=== PATIENT | male | born 1945 | race Two or more races ===

== ENCOUNTER 2022-04-14 05:35 | Day surgery (SDC) | payer OTHER ==
[~2022-04-14] VITALS: Ht 162.6 cm; Wt 66.2 kg
[2022-04-14] MEDS ORDERED: ULTRACET PO (13:47)
== END 2022-04-14 17:50 | disposition home or self-care (01) ==
LOC: CIR.AMB 05:35
PROVIDERS: ATTEND Surgery
DX: C21.8 Malignant neoplasm of overlapping sites of rectum, anus and anal canal (principal); K62.89 Other specified diseases of anus and rectum; K62.5 Hemorrhage of anus and rectum; F17.210 Nicotine dependence, cigarettes, uncomplicated; Z20.822 Contact with and (suspected) exposure to COVID-19

== ENCOUNTER 2022-05-19 09:15 | Inpatient (IN) | payer OTHER ==
[~2022-05-19] VITALS: Ht 162.6 cm; Wt 66.2 kg
[~2022-05-19 09:15] MED LIST: ULTRACET PO
[2022-05-23] MEDS ORDERED: HYDROXYCHLOROQ200 MG (14:57)
[2022-05-23] MEDS ORDERED: MONTELUKAST SOD10 MG (14:57)
[2022-05-23] MEDS ORDERED: IBUPROFEN800 MG (14:57)
[2022-05-23] MEDS ORDERED: FOLIC ACID1 MG (14:57)
[2022-05-23] MEDS ORDERED: CETIRIZINE HCL10 MG (14:57)
[2022-05-23] MEDS ORDERED: ALENDRONATE SOD70 MG (14:57)
[2022-05-23] MEDS ORDERED: TAMSULOSIN HCL0.4 MG (14:57)
[2022-05-23] MEDS ORDERED: DICLOFENAC POTA50 MG (14:57)
[2022-05-23] MEDS ORDERED: ST. JOSEPH ASPI81 M2 (14:58)
[2022-05-23] MEDS ORDERED: FENTANYL1 EAC3 (14:58)
[2022-05-23] MEDS ORDERED: METHYLPREDNISOLO4 MG (14:58)
[2022-05-28] MEDS ORDERED: PERCOCET 5-3251 EACH PO (12:55)
[2022-05-28] MEDS ORDERED: NEURONTIN300 MG PO (12:55)
[2022-05-28] MEDS ORDERED: HIBICLENS118 ML TOP (12:56)
[2022-05-28] MEDS ORDERED: INTESTINEX680 M1 PO (12:56)
[2022-05-28] MEDS ORDERED: AMOX1TAB5 PO (12:56)
== END 2022-05-28 14:28 | disposition home or self-care (01) | DRG 330 ==
LOC: SURH 05-23 06:43 → O/R 05-23 06:43 → SURH 05-23 09:15
PROVIDERS: ADMIT Surgery; ATTEND Surgery
PROC: 0DTP4ZZ Resection of Rectum, Percutaneous Endoscopic Approach (ICD-10-PCS; 2022-05-23)
PROC: 0DBQ4ZZ Excision of Anus, Percutaneous Endoscopic Approach (ICD-10-PCS; 2022-05-23)
PROC: 07BC4ZZ Excision of Pelvis Lymphatic, Percutaneous Endoscopic Approach (ICD-10-PCS; 2022-05-23)
PROC: 0D1N4Z4 Bypass Sigmoid Colon to Cutaneous, Percutaneous Endoscopic Approach (ICD-10-PCS; 2022-05-23)
PROC: 0DTN4ZZ Resection of Sigmoid Colon, Percutaneous Endoscopic Approach (ICD-10-PCS; principal; 2022-05-23 15:00)
DX: C21.1 Malignant neoplasm of anal canal (principal); K62.5 Hemorrhage of anus and rectum; R59.0 Localized enlarged lymph nodes; K62.89 Other specified diseases of anus and rectum; R33.8 Other retention of urine

== ENCOUNTER 2022-06-04 21:26 | Inpatient (IN) | payer OTHER ==
[~2022-06-04] VITALS: Ht 162.6 cm; Wt 68.0 kg
[~2022-06-04 21:26] MED LIST changes: +ALENDRONATE SOD70 MG; +AMOX1TAB5 PO; +CETIRIZINE HCL10 MG; +DICLOFENAC POTA50 MG; +FENTANYL1 EAC3; +FOLIC ACID1 MG; +HIBICLENS118 ML TOP; +HYDROXYCHLOROQ200 MG; +IBUPROFEN800 MG; +INTESTINEX680 M1 PO; +METHYLPREDNISOLO4 MG; +MONTELUKAST SOD10 MG; +NEURONTIN300 MG PO; +PERCOCET 5-3251 EACH PO; +ST. JOSEPH ASPI81 M2; +TAMSULOSIN HCL0.4 MG
[2022-06-06] MEDS ORDERED: FENTANYL1 EAC3 (08:42)
[2022-06-06] MEDS ORDERED: RAYOS5 MG (08:42)
[2022-06-06] MEDS ORDERED: FOLIC ACID1 MG (08:42)
[2022-06-06] MEDS ORDERED: DICLOFENAC POTA50 MG (08:42)
[2022-06-06] MEDS ORDERED: MONTELUKAST SOD10 MG (08:42)
[2022-06-06] MEDS ORDERED: ST. JOSEPH ASPI81 M2 (08:42)
[2022-06-06] MEDS ORDERED: ALENDRONATE SOD70 MG (08:42)
[2022-06-06] MEDS ORDERED: CETIRIZINE HCL10 MG (08:42)
[2022-06-06] MEDS ORDERED: METHYLPREDNISOLO4 MG (08:42)
[2022-06-06] MEDS ORDERED: IBUPROFEN800 MG (08:42)
[2022-06-14] MEDS ORDERED: NEURONTIN300 MG PO (07:35)
[2022-06-14] MEDS ORDERED: ACETAMINOPHEN500 M2 PO (07:35)
[2022-06-23] MEDS ORDERED: TAMS0.4C PO (12:51)
== END 2022-06-23 14:10 | disposition home or self-care (01) | DRG 920 ==
LOC: ER 21:26 → SURH 06-05 16:21 → SURG 06-07 13:17 → SURH 06-09 09:57
PROVIDERS: ADMIT Surgery; ATTEND Surgery
PROC: BW21ZZZ Computerized Tomography (CT Scan) of Abdomen and Pelvis (ICD-10-PCS; principal; 2022-06-04)
PROC: BW21YZZ Computerized Tomography (CT Scan) of Abdomen and Pelvis using Other Contrast (ICD-10-PCS; 2022-06-19)
DX: T81.31XA Disruption of external operation (surgical) wound, not elsewhere classified, initial encounter (principal); C21.1 Malignant neoplasm of anal canal; T81.49XA Infection following a procedure, other surgical site, initial encounter; K62.5 Hemorrhage of anus and rectum; B96.29 Other Escherichia coli [E. coli] as the cause of diseases classified elsewhere; Z93.3 Colostomy status

== ENCOUNTER 2022-07-21 17:27 | Inpatient (IN) | payer OTHER ==
[~2022-07-21] VITALS: Ht 167.6 cm; Wt 63.5 kg
[~2022-07-21 17:27] MED LIST changes: +ACETAMINOPHEN500 M2 PO; +RAYOS5 MG; +TAMS0.4C PO
--- NOTE | 2022-07-21 17:47 | NUR ---
PTE ALERTA Y ORIENTADO X 3 ESFERAS EN COMPANIA DE FAMILIAR RECIBIDO EN AMBULANCIA,REFIEREN PTE OPERADO EN ENERO DE COLON POR DR Irma JAIN,DOLOR EN AREA ANAL DESDE HACE 2 SEMANAS,CON OLOR FETIDO Y SUPURANDO.SE OBSERVA OSTOMIA EN LADO RT.
--- NOTE | 2022-07-21 18:59 | NUR ---
PACIENTE EVALUADO POR EL QUIEN ORDENA TRATAMIENTO MEDICO. STEPHAN CASTRO REALIZA MUESTRAS BAJO MEDIDAS ASEPTICAS Y ADMINISTRA MEDICAMENTOS CRYS ORDEN. SE ORIENTA SOBRE CT PO.
--- NOTE | 2022-07-21 23:32 | NUR ---
SE RECIBE PTE MASCULINO ALERTA Y ORIENTADO X3 DEL TURNO ANTERIOR, CON BUEN PATRON RESPIRATORIO Y ISN QUEJA DE DOLOR AL MOMENTO. VENOPUNCION PATENTE, VILLA DE EDEMA Y ERITEMA RECIBIENDO TERAPIA DE IVFS 0.9NSS BAJANDO A 120ML/HR. PTE EN FABIOLA NIVEL MAS BAJO CON BARANDAS ELEVADAS Y FRENOS COLOCADOS POR SEGURIDAD. PENDIENTE CONSULTA CON YA NOTIFICADA.
--- NOTE | 2022-07-22 07:47 | NUR ---
SE RECIBE PTE DEL TURNO ANTERIOR, ALERTA Y ORIENTADO EN BLESSING MARCIE ESFERAS, UBICADO EN FABIOLA, NIVEL MAS BAJO, PIERCE DE IDENTIFICACION Y BARANDAS ELEVADAS POR PRECAUCION. SE OBSERVA CON BUEN PATRON RESPIRATORIO. PIEL TIBIA AL TACTO. IV PATENTE Y VILLA DE EDEMA O ERITEMA RECIBIENDO 0.9% NSS @120ML/HR. PENDIENTE CONSULTA CON DR Irma JAIN. SE MANTIENE BAJO OBSERVACION.
[2022-07-25] MEDS ORDERED: FINASTERIDE5 MG (10:34)
[2022-07-28] MEDS ORDERED: DICLOFENAC POTA50 MG PO (12:00)
[2022-07-28] MEDS ORDERED: NEURONTIN300 MG PO (12:00)
[2022-07-28] MEDS ORDERED: ACETAMINOPHEN500 M2 PO (12:00)
[2022-07-28] MEDS ORDERED: AMOX1TAB5 PO (12:00)
== END 2022-07-28 13:38 | disposition home or self-care (01) | DRG 949 ==
LOC: ER 17:27 → MEDJ 07-22 15:55 → SURG 07-22 15:55
PROVIDERS: ADMIT Surgery; ATTEND Surgery
PROC: BW21YZZ Computerized Tomography (CT Scan) of Abdomen and Pelvis using Other Contrast (ICD-10-PCS; principal; 2022-07-21)
DX: T81.49XD Infection following a procedure, other surgical site, subsequent encounter (principal); C21.1 Malignant neoplasm of anal canal; B96.5 Pseudomonas (aeruginosa) (mallei) (pseudomallei) as the cause of diseases classified elsewhere; K62.89 Other specified diseases of anus and rectum; Z93.3 Colostomy status

== ENCOUNTER 2023-02-12 18:00 | Inpatient (IN) | payer OTHER ==
[~2023-02-12] VITALS: Ht 165.1 cm; Wt 63.5 kg
[~2023-02-12 18:00] MED LIST changes: +DICLOFENAC POTA50 MG PO; +FINASTERIDE5 MG
[2023-02-12 19:57] LABS: HEMATOCRIT 31.9 % (39.0-48.0); HEMOGLOBIN 10.8 g/dL (13-16.00); MEAN CELL VOLUME 103.6 fL (80.0-100.00); MEAN CORPUSCULAR HEMOGLOBIN 35.2 pg (27.00-32.0); PLATELET COUNT 250 K/uL (150-450); RED BLOOD COUNT 3.08 M/uL (4.00-6.00); RED CELL DISTRIBUTION WIDTH 13.1 % (11.5-14.5)
[2023-02-12 20:02] LABS: ERYTHROCYTE SEDIMENTATION RATE 64 mm/hr
[2023-02-12 20:34] LABS: ALBUMIN 3.1 gm/dL (3.4-5.0); BILIRUBIN TOTAL 0.31 mg/dL (0.3-1.2); C-REACTIVE PROTEIN 2.34 MG/DL (0.00-0.29); CALCIUM 9.6 mg/dL (8.5-10.1); CREATININE SERUM 0.84 mg/dL (0.70-1.30); GFR 88.84; GLOBULINA 4.3 G/DL (2.4-3.5); POTASSIUM 4.31 mEq/L (3.5-5.1); TOTAL PROTEIN 7.4 gm/dL (6.4-8.2)
[2023-02-12 23:55] LABS: URINE APPEARANCE Clear; URINE BILIRRUBIN Negative (NEGATIVE); URINE BLOOD Negative; URINE COLOR Yellow; URINE GLUCOSE Negative (NEGATIVE); URINE LEUKOCYTE Negative; URINE NITRATE Negative; URINE PROTEIN Negative (NEGATIVE); URINE UROBILINOGEN 0.2 E.U./dl
[2023-02-12 23:59] LABS: URINE RBC 3.8 uL (0.0-20.8)
[2023-02-13 00:28] LABS: INR 1.04; PARTIAL THROMBOPLASTIN TIME 31.6 SECONDS (22.0-34.0); PROTHROMBIN TIME 10.9 SECONDS (9.0-11.5)
[2023-02-13 00:44] LABS: URINE BACTERIA 2.5 uL (0.0-1933); URINE EPITHELIAL CELLS 0.1 uL (0.0-38.8); URINE WBC 0.4 uL (0.0-23.2)
[2023-02-14 08:22] LABS: HEMATOCRIT 36.7 % (39.0-48.0); HEMOGLOBIN 12.7 g/dL (13-16.00); MEAN CORPUSCULAR HEMOGLOBIN 35.7 pg (27.00-32.0); MEAN CORPUSCULAR HGB CONC 34.7 g/dl (32.0-36.0); PLATELET COUNT 261 K/uL (150-450); RED BLOOD COUNT 3.56 M/uL (4.00-6.00); RED CELL DISTRIBUTION WIDTH 13.7 % (11.5-14.5)
[2023-02-14 09:14] LABS: ALBUMIN 3.3 gm/dL (3.4-5.0); BILIRUBIN TOTAL 0.59 mg/dL (0.3-1.2); CALCIUM 9.4 mg/dL (8.5-10.1); CREATININE SERUM 0.65 mg/dL (0.70-1.30); GFR 119.43; GLOBULINA 4.1 G/DL (2.4-3.5); MAGNESIUM 2.2 mg/dL (1.8-2.4); PHOSPHOROUS 3.6 mg/dL (2.5-4.9); POTASSIUM 4.08 mEq/L (3.5-5.1); TOTAL PROTEIN 7.4 gm/dL (6.4-8.2)
[2023-02-14 09:15] LABS: C-REACTIVE PROTEIN 2.94 MG/DL (0.00-0.29)
[2023-02-17 08:26] LABS: ALBUMIN 3.2 gm/dL (3.4-5.0); CALCIUM 9.2 mg/dL (8.5-10.1); CREATININE SERUM 0.6 mg/dL (0.70-1.30); GFR 130.99; PHOSPHOROUS 3.8 mg/dL (2.5-4.9); POTASSIUM 4.03 mEq/L (3.5-5.1)
[2023-02-17 09:10] LABS: HEMATOCRIT 34.6 % (39.0-48.0); HEMOGLOBIN 11.9 g/dL (13-16.00); MEAN CELL VOLUME 102.7 fL (80.0-100.00); MEAN CORPUSCULAR HEMOGLOBIN 35.3 pg (27.00-32.0); MEAN CORPUSCULAR HGB CONC 34.4 g/dl (32.0-36.0); PLATELET COUNT 236 K/uL (150-450); RED BLOOD COUNT 3.37 M/uL (4.00-6.00); RED CELL DISTRIBUTION WIDTH 12.7 % (11.5-14.5)
[2023-02-21 07:03] LABS: HEMOGLOBIN 11.3 g/dL (13-16.00); MEAN CELL VOLUME 101.7 fL (80.0-100.00); MEAN CORPUSCULAR HEMOGLOBIN 34.9 pg (27.00-32.0); MEAN CORPUSCULAR HGB CONC 34.3 g/dl (32.0-36.0); PLATELET COUNT 263 K/uL (150-450); RED BLOOD COUNT 3.25 M/uL (4.00-6.00); RED CELL DISTRIBUTION WIDTH 12.8 % (11.5-14.5)
[2023-02-21 07:54] LABS: BILIRUBIN TOTAL 0.45 mg/dL (0.3-1.2); C-REACTIVE PROTEIN 6.05 MG/DL (0.00-0.29); CALCIUM 9.5 mg/dL (8.5-10.1); CREATININE SERUM 0.62 mg/dL (0.70-1.30); GFR 126.13; GLOBULINA 3.9 G/DL (2.4-3.5); MAGNESIUM 2.2 mg/dL (1.8-2.4); PHOSPHOROUS 2.8 mg/dL (2.5-4.9); POTASSIUM 4.07 mEq/L (3.5-5.1); TOTAL PROTEIN 6.9 gm/dL (6.4-8.2)
[2023-02-23 07:21] LABS: CALCIUM 9.7 mg/dL (8.5-10.1); CREATININE SERUM 0.59 mg/dL (0.70-1.30); GFR 133.56; POTASSIUM 4.24 mEq/L (3.5-5.1)
[2023-02-23 07:36] LABS: HEMATOCRIT 35.9 % (39.0-48.0); HEMOGLOBIN 11.9 g/dL (13-16.00); MEAN CELL VOLUME 103.9 fL (80.0-100.00); MEAN CORPUSCULAR HEMOGLOBIN 34.5 pg (27.00-32.0); MEAN CORPUSCULAR HGB CONC 33.2 g/dl (32.0-36.0); PLATELET COUNT 306 K/uL (150-450); RED BLOOD COUNT 3.46 M/uL (4.00-6.00); RED CELL DISTRIBUTION WIDTH 12.8 % (11.5-14.5)
[2023-02-23] MEDS ORDERED: DICLOFENAC POTA50 MG PO (13:59)
[2023-02-23] MEDS ORDERED: PERCOCET 5-3251 EACH PO (13:59)
[2023-02-23] MEDS ORDERED: NEURONTIN300 MG PO (13:59)
[2023-02-24] MEDS ORDERED: PERCOCET 5-3251 EACH PO (11:41)
[2023-02-24] MEDS ORDERED: TRAM1TAB98 PO (11:42)
[2023-02-27] MEDS ORDERED: PERCOCET 5-3251 EACH PO (09:17)
[2023-02-27] MEDS ORDERED: NEURONTIN300 MG PO (09:17)
[2023-02-27] MEDS ORDERED: ZIPSOR25 MG PO (09:17)
== END 2023-02-27 13:44 | disposition home or self-care (01) | DRG 580 ==
LOC: ER 18:00 → SURG 22:39 → SURH 22:39 → MEDJ 22:39 → SURH 23:48 → MEDJ 02-13 00:45 → SURH 02-16 18:03
PROVIDERS: General Practice; Internal Medicine; Internal Medicine Infectious Disease; ADMIT Surgery; ATTEND Surgery
PROC: 0JB73ZZ Excision of Back Subcutaneous Tissue and Fascia, Percutaneous Approach (ICD-10-PCS; principal; 2023-02-16 13:30)
PROC: BW3GZZZ Magnetic Resonance Imaging (MRI) of Pelvic Region (ICD-10-PCS; 2023-02-23)
DX: L02.215 Cutaneous abscess of perineum (principal); C21.1 Malignant neoplasm of anal canal; N39.0 Urinary tract infection, site not specified; B96.20 Unspecified Escherichia coli [E. coli] as the cause of diseases classified elsewhere; K60.3 Anal fistula; C76.3 Malignant neoplasm of pelvis
CPT/HCPCS: 72198

== ENCOUNTER 2023-05-03 15:26 | Inpatient (IN) | payer OTHER ==
[~2023-05-03] VITALS: Ht 154.9 cm; Wt 61.2 kg
[~2023-05-03 15:26] MED LIST changes: +TRAM1TAB98 PO; +ZIPSOR25 MG PO
[2023-05-03] MEDS ORDERED: TAMS0.4C (15:34)
[2023-05-03 18:17] LABS: HEMATOCRIT 28.2 % (39.0-48.0); MEAN CELL VOLUME 102.8 fL (80.0-100.00); MEAN CORPUSCULAR HEMOGLOBIN 34.5 pg (27.00-32.0); MEAN CORPUSCULAR HGB CONC 33.6 g/dl (32.0-36.0); PLATELET COUNT 224 K/uL (150-450); RED BLOOD COUNT 2.75 M/uL (4.00-6.00); RED CELL DISTRIBUTION WIDTH 15.2 % (11.5-14.5)
[2023-05-03 18:20] LABS: ERYTHROCYTE SEDIMENTATION RATE 90 mm/hr; HEMOGLOBIN 9.5 g/dL (13-16.00)
[2023-05-03 18:23] LABS: PH,URINE 6.5 (5.0-8.0); URINE APPEARANCE Clear; URINE BILIRRUBIN Negative (NEGATIVE); URINE BLOOD Negative; URINE COLOR Yellow; URINE GLUCOSE Negative (NEGATIVE); URINE LEUKOCYTE Negative; URINE NITRATE Negative; URINE PROTEIN Negative (NEGATIVE); URINE UROBILINOGEN 0.2 E.U./dl
[2023-05-03 18:24] LABS: URINE EPITHELIAL CELLS 5.8 uL (0.0-38.8)
[2023-05-03 18:25] LABS: URINE BACTERIA 2.5 uL (0.0-1933); URINE RBC 1.7 uL (0.0-20.8)
[2023-05-03 18:37] LABS: INR 1.07; PARTIAL THROMBOPLASTIN TIME 33.2 SECONDS (22.0-34.0); PROTHROMBIN TIME 11.2 SECONDS (9.0-11.5)
[2023-05-03 18:42] LABS: ALBUMIN 2.8 gm/dL (3.4-5.0); BILIRUBIN TOTAL 0.36 mg/dL (0.3-1.2); CALCIUM 9.3 mg/dL (8.5-10.1); CREATININE SERUM 0.84 mg/dL (0.70-1.30); GFR 88.84; GLOBULINA 4.1 G/DL (2.4-3.5); POTASSIUM 4.09 mEq/L (3.5-5.1); TOTAL PROTEIN 6.9 gm/dL (6.4-8.2)
[2023-05-07 06:52] LABS: HEMATOCRIT 31.7 % (39.0-48.0); HEMOGLOBIN 10.8 g/dL (13-16.00); MEAN CELL VOLUME 102.9 fL (80.0-100.00); MEAN CORPUSCULAR HEMOGLOBIN 35.2 pg (27.00-32.0); MEAN CORPUSCULAR HGB CONC 34.2 g/dl (32.0-36.0); PLATELET COUNT 267 K/uL (150-450); RED BLOOD COUNT 3.08 M/uL (4.00-6.00); RED CELL DISTRIBUTION WIDTH 15.3 % (11.5-14.5)
[2023-05-07 07:23] LABS: CALCIUM 10.1 mg/dL (8.5-10.1); CREATININE SERUM 0.65 mg/dL (0.70-1.30); GFR 119.43; POTASSIUM 4.2 mEq/L (3.5-5.1)
[2023-05-08] MEDS ORDERED: NEURONTIN300 MG PO (15:54)
[2023-05-08] MEDS ORDERED: DICLOFENAC POTA50 MG PO (15:54)
[2023-05-08] MEDS ORDERED: PERCOCET 5-3251 EACH PO (15:54)
== END 2023-05-08 16:38 | disposition home or self-care (01) | DRG 603 ==
LOC: ER 15:26 → SURH 22:25
PROVIDERS: Internal Medicine; ADMIT Surgery; ATTEND Surgery
PROC: BW2GYZZ Computerized Tomography (CT Scan) of Pelvic Region using Other Contrast (ICD-10-PCS; principal; 2023-05-03)
PROC: BW3GZZZ Magnetic Resonance Imaging (MRI) of Pelvic Region (ICD-10-PCS; 2023-05-05)
PROC: BW3GYZZ Magnetic Resonance Imaging (MRI) of Pelvic Region using Other Contrast (ICD-10-PCS; 2023-05-05)
DX: L02.215 Cutaneous abscess of perineum (principal); L98.498 Non-pressure chronic ulcer of skin of other sites with other specified severity; C48.2 Malignant neoplasm of peritoneum, unspecified; C21.1 Malignant neoplasm of anal canal; C61 Malignant neoplasm of prostate; K60.3 Anal fistula; B96.20 Unspecified Escherichia coli [E. coli] as the cause of diseases classified elsewhere; Z93.3 Colostomy status; Z92.21 Personal history of antineoplastic chemotherapy
CPT/HCPCS: 72198

== ENCOUNTER 2023-09-19 08:37 | Inpatient (IN) | payer OTHER ==
[~2023-09-19] VITALS: Ht 170.2 cm; Wt 68.0 kg
[~2023-09-19 08:37] MED LIST changes: +TAMS0.4C
--- NOTE | 2023-09-19 08:51 | NUR ---
PACIENTE MASCULINO ALERTA Y ORIENTADO EN PERSONA, LLEGA A DELORIS DE EMERGENCIA EN AMBULACIA. PERSONAL DE EMERGENCIA MEDICAS VERBALIZA QUE EL PACIENTE SE ENCUENTRA CON DIFICULTAD RESPIRATORIA, CONECTADO A NON-REBREATHER MASK. SE LE REALIZA EKG Y SE LE PRESENTA A EL CUAL REFIERE COLOCARLO EN AREA DE CRITICO.
[2023-09-19] MEDS ORDERED: 0.9 % SODIUM CHLORIDE 1,000 ML IV STA (09:15)
[2023-09-19] MEDS ORDERED: METHYLPREDNISOLONE SOD SUCC 125 MG VIAL IV STA (09:18)
[2023-09-19] MEDS ORDERED: LEVALBUTEROL HCL 1.25 MG/3 ML SOLUTION IH SCH ×2 (09:18→13:03)
[2023-09-19 09:38] LABS: HEMATOCRIT 26.4 % (39.0-48.0); MEAN CELL VOLUME 96.5 fL (80.0-100.00); MEAN CORPUSCULAR HEMOGLOBIN 31.7 pg (27.00-32.0); PLATELET COUNT 242 K/uL (150-450); RED BLOOD COUNT 2.74 M/uL (4.00-6.00); RED CELL DISTRIBUTION WIDTH 16.6 % (11.5-14.5)
[2023-09-19 09:39] LABS: HEMOGLOBIN 8.7 g/dL (13-16.00)
[2023-09-19 09:54] LABS: ALBUMIN 2.2 gm/dL (3.4-5.0); BILIRUBIN TOTAL 0.62 mg/dL (0.3-1.2); BILIRUBIN,CONJUGATED 0.26 mg/dL (0.0-0.2); BILIRUBIN,UNCONJUGATED 0.36 mg/dL (0.0-0.6); CALCIUM 11.9 mg/dL (8.5-10.1); CREATININE SERUM 0.78 mg/dL (0.70-1.30); GFR 96.51; POTASSIUM 3.71 mEq/L (3.5-5.1); TOTAL PROTEIN 7.6 gm/dL (6.4-8.2)
[2023-09-19] MEDS ORDERED: PIPERACILLIN/TAZOBACTAM SODIUM 3.375 GM in DEXTROSE 5 % IN WATER 100 ML IV SCH (12:00)
[2023-09-19] MEDS ORDERED: FAMOTIDINE/PF 20 MG in 0.9 % SODIUM CHLORIDE 100 ML IV SCH (12:55)
[2023-09-19] MEDS ORDERED: PIPERACILLIN/TAZOBACTAM SODIUM 3.375 GM in 0.9 % SODIUM CHLORIDE 100 ML IV SCH (12:55)
[2023-09-19] MEDS ORDERED: 0.9 % SODIUM CHLORIDE 1,000 ML IV SCH (13:00)
[2023-09-19] MEDS ORDERED: GABAPENTIN 300 MG CAPSULE PO SCH (13:01)
[2023-09-19] MEDS ORDERED: ACETAMINOPHEN 325 MG TABLET PO PRN (13:15)
[2023-09-19 13:19] LABS: ABG PH 7.466 (7.35-7.45); ABG PO2 31.8 mmHg (80-100); ABG pCO2 36.4 mmHg (35-45); BASE EXCESS 2.2 mmol/l; BICARBONATE 25.7 mmol/l (23-25); SaO2 66.2 %
[2023-09-19 13:20] LABS: Tco2 26.8 mmol/l; allen test SATISFACTORY; o2 21 %; puncture site RADIAL RIGHT
[2023-09-19 13:46] LABS: INR 1.16; PARTIAL THROMBOPLASTIN TIME 29.9 SECONDS (22.0-34.0)
[2023-09-19 13:48] LABS: CALCIUM 11.6 mg/dL (8.5-10.1); CKMB 1.9 NG/ML (0.5-3.6); MAGNESIUM 1.5 mg/dL (1.8-2.4); PHOSPHOROUS 2.7 mg/dL (2.5-4.9)
[2023-09-19 13:58] LABS: PH,URINE 6.5 (5.0-8.0); URINE APPEARANCE Clear; URINE BILIRRUBIN Negative (NEGATIVE); URINE BLOOD Moderate; URINE COLOR Yellow; URINE GLUCOSE Negative (NEGATIVE); URINE LEUKOCYTE Trace; URINE NITRATE Negative; URINE PROTEIN Negative (NEGATIVE); URINE UROBILINOGEN 0.2 E.U./dl
[2023-09-19 13:59] LABS: URINE BACTERIA 59.1 uL (0.0-1933); URINE EPITHELIAL CELLS 12.2 uL (0.0-38.8); URINE RBC 156.2 uL (0.0-20.8); URINE WBC 64.9 uL (0.0-23.2)
[2023-09-19] MEDS ORDERED: FAMOTIDINE20 MG (16:13)
[2023-09-19] MEDS ORDERED: FENTANYL1 EAC6 (16:13)
[2023-09-19] MEDS ORDERED: GABAPENTIN300 M2 (16:13)
[2023-09-19] MEDS ORDERED: ONDANSETRON HCL4 MG (16:13)
[2023-09-19] MEDS ORDERED: PANTOPRAZOLE SO20 MG (16:13)
[2023-09-20] MEDS ORDERED: PIPERACILLIN/TAZOBACTAM SODIUM 3.375 GM VIAL IV ONE (10:38)
[2023-09-20] MEDS ORDERED: SODIUM CL 0.9% 100 ML IV.SOLN IV ONE (14:19)
[2023-09-21] MEDS ORDERED: DIATRIZOATE MEGLUMINE, SODIUM 30 ML BOTTLE PO NR (08:30)
[2023-09-21] MEDS ORDERED: MAGNESIUM SULFATE IN WATER 50 ML IV NR (11:15)
[2023-09-21 15:36] LABS: ob NEGATIVE (NEGATIVE)
[2023-09-21] MEDS ORDERED: LEVALBUTEROL HCL 1.25 MG/3 ML SOLUTION IH SCH (18:00)
[2023-09-22 07:17] LABS: HEMATOCRIT 24.6 % (39.0-48.0); MEAN CELL VOLUME 96.7 fL (80.0-100.00); MEAN CORPUSCULAR HGB CONC 34.1 g/dl (32.0-36.0); PLATELET COUNT 219 K/uL (150-450); RED BLOOD COUNT 2.55 M/uL (4.00-6.00); RED CELL DISTRIBUTION WIDTH 16.2 % (11.5-14.5)
[2023-09-22 07:35] LABS: MEAN CORPUSCULAR HEMOGLOBIN 32.9 pg (27.00-32.0)
[2023-09-22 07:36] LABS: HEMOGLOBIN 8.4 g/dL (13-16.00)
[2023-09-22 08:00] LABS: CALCIUM 11.3 mg/dL (8.5-10.1); CREATININE SERUM 0.63 mg/dL (0.70-1.30); GFR 123.49; POTASSIUM 3.18 mEq/L (3.5-5.1)
[2023-09-22] MEDS ORDERED: POTASSIUM CHLORIDE IN WATER 40 MEQ/100 ML PIGGYBAG IV SCH (12:00)
[2023-09-22] MEDS ORDERED: MAGNESIUM SULFATE IN WATER 50 ML IV NR (13:19)
[2023-09-22] MEDS ORDERED: MEROPENEM 500 MG/VIAL VIAL IV SCH (18:00)
[2023-09-23 08:11] LABS: CALCIUM 11.5 mg/dL (8.5-10.1); CREATININE SERUM 0.57 mg/dL (0.70-1.30); GFR 138.61; POTASSIUM 3.56 mEq/L (3.5-5.1)
[2023-09-23] MEDS ORDERED: POTASSIUM CHLORIDE IN WATER 40 MEQ/100 ML PIGGYBAG IV ONE (21:27)
[2023-09-24] MEDS ORDERED: SODIUM HYPOCHLORITE 1OZ TOP SCH (09:00)
[2023-09-25 09:18] LABS: HEMATOCRIT 26.3 % (39.0-48.0); MEAN CORPUSCULAR HGB CONC 32.8 g/dl (32.0-36.0); PLATELET COUNT 265 K/uL (150-450); RED BLOOD COUNT 2.74 M/uL (4.00-6.00); RED CELL DISTRIBUTION WIDTH 16.6 % (11.5-14.5)
[2023-09-25 09:48] LABS: HEMOGLOBIN 8.6 g/dL (13-16.00); MEAN CORPUSCULAR HEMOGLOBIN 31.3 pg (27.00-32.0)
[2023-09-25] MEDS ORDERED: VITAMIN B COMPLEX/LYSINE 1 ML ML PO SCH (13:31)
[2023-09-25] MEDS ORDERED: TAMSULOSIN HCL 0.4 MG CAP PO SCH (19:32)
[2023-09-28 08:24] LABS: HEMATOCRIT 27.5 % (39.0-48.0); MEAN CELL VOLUME 96.9 fL (80.0-100.00); MEAN CORPUSCULAR HEMOGLOBIN 31.6 pg (27.00-32.0); MEAN CORPUSCULAR HGB CONC 32.6 g/dl (32.0-36.0); PLATELET COUNT 234 K/uL (150-450); RED BLOOD COUNT 2.84 M/uL (4.00-6.00); RED CELL DISTRIBUTION WIDTH 16.7 % (11.5-14.5)
[2023-09-28 08:50] LABS: CALCIUM 12.3 mg/dL (8.5-10.1); CREATININE SERUM 0.64 mg/dL (0.70-1.30); GFR 121.27
[2023-09-28 09:10] LABS: POTASSIUM 2.59 mEq/L (3.5-5.1)
[2023-09-28] MEDS ORDERED: SODIUM CHLORIDE 0.45 % 1,000 ML IV SCH (09:30)
[2023-09-28] MEDS ORDERED: POTASSIUM CHLORIDE IN WATER 40 MEQ/100 ML PIGGYBAG IV SCH (12:00)
[2023-09-30 12:14] LABS: CALCIUM 10.7 mg/dL (8.5-10.1); CREATININE SERUM 0.51 mg/dL (0.70-1.30); GFR 157.59
[2023-09-30 13:33] LABS: POTASSIUM 2.56 mEq/L (3.5-5.1)
[2023-09-30] MEDS ORDERED: POTASSIUM CHLORIDE IN WATER 40 MEQ/100 ML PIGGYBAG IV SCH (17:00)
[2023-10-01 14:58] LABS: HEMATOCRIT 25.2 % (39.0-48.0); MEAN CELL VOLUME 95.1 fL (80.0-100.00); MEAN CORPUSCULAR HGB CONC 32.8 g/dl (32.0-36.0); PLATELET COUNT 173 K/uL (150-450); RED BLOOD COUNT 2.65 M/uL (4.00-6.00); RED CELL DISTRIBUTION WIDTH 16.9 % (11.5-14.5)
[2023-10-01 14:59] LABS: MEAN CORPUSCULAR HEMOGLOBIN 30.9 pg (27.00-32.0)
[2023-10-01 15:01] LABS: HEMOGLOBIN 8.2 g/dL (13-16.00)
[2023-10-01 15:21] LABS: ALBUMIN 2.2 gm/dL (3.4-5.0); BILIRUBIN TOTAL 0.88 mg/dL (0.3-1.2); CALCIUM 10.5 mg/dL (8.5-10.1); CREATININE SERUM 0.42 mg/dL (0.70-1.30); GFR 197.17; GLOBULINA 4.5 G/DL (2.4-3.5); TOTAL PROTEIN 6.7 gm/dL (6.4-8.2)
[2023-10-01 16:03] LABS: POTASSIUM 2.81 mEq/L (3.5-5.1)
[2023-10-01] MEDS ORDERED: MEROPENEM 500 MG/VIAL VIAL IV SCH (18:00)
[2023-10-01] MEDS ORDERED: POTASSIUM CHLORIDE 10 MEQ CAPSULE PO NR (19:00)
[2023-10-01] MEDS ORDERED: MAGNESIUM SULFATE IN WATER 50 ML IV NR (19:00)
[2023-10-02] MEDS ORDERED: POTASSIUM CHLORIDE IN WATER 100 ML IV ONE (01:00)
[2023-10-02 13:48] LABS: HEMATOCRIT 27.7 % (39.0-48.0); HEMOGLOBIN 9.2 g/dL (13-16.00); MEAN CELL VOLUME 96.8 fL (80.0-100.00); PLATELET COUNT 190 K/uL (150-450); RED BLOOD COUNT 2.86 M/uL (4.00-6.00); RED CELL DISTRIBUTION WIDTH 16.9 % (11.5-14.5)
[2023-10-02 14:34] LABS: ALBUMIN 2.3 gm/dL (3.4-5.0); BILIRUBIN TOTAL 0.8 mg/dL (0.3-1.2); CALCIUM 10.4 mg/dL (8.5-10.1); CREATININE SERUM 0.52 mg/dL (0.70-1.30); GFR 154.1; MAGNESIUM 1.7 mg/dL (1.8-2.4); POTASSIUM 4.03 mEq/L (3.5-5.1); TOTAL PROTEIN 7.3 gm/dL (6.4-8.2)
[2023-10-04] MEDS ORDERED: fentaNYL CITRATE 50 MCG/ML AMPUL IV PUSH ONE (18:00)
[2023-10-06 11:10] LABS: HEMATOCRIT 26.8 % (39.0-48.0); MEAN CELL VOLUME 96.3 fL (80.0-100.00); MEAN CORPUSCULAR HEMOGLOBIN 32.1 pg (27.00-32.0); MEAN CORPUSCULAR HGB CONC 33.4 g/dl (32.0-36.0); PLATELET COUNT 215 K/uL (150-450); RED BLOOD COUNT 2.79 M/uL (4.00-6.00); RED CELL DISTRIBUTION WIDTH 17.3 % (11.5-14.5)
[2023-10-06 11:44] LABS: ALBUMIN 2.2 gm/dL (3.4-5.0); BILIRUBIN TOTAL 0.46 mg/dL (0.3-1.2); CALCIUM 11.3 mg/dL (8.5-10.1); CREATININE SERUM 0.46 mg/dL (0.70-1.30); GFR 177.52; GLOBULINA 4.7 G/DL (2.4-3.5); POTASSIUM 3.21 mEq/L (3.5-5.1); TOTAL PROTEIN 6.9 gm/dL (6.4-8.2)
[2023-10-08 15:11] LABS: ALBUMIN 2.1 gm/dL (3.4-5.0); BILIRUBIN TOTAL 0.6 mg/dL (0.3-1.2); CREATININE SERUM 0.49 mg/dL (0.70-1.30); GFR 165.04; GLOBULINA 4.7 G/DL (2.4-3.5); POTASSIUM 3.49 mEq/L (3.5-5.1); TOTAL PROTEIN 6.8 gm/dL (6.4-8.2)
[2023-10-08 16:13] LABS: CALCIUM 13.4 mg/dL (8.5-10.1)
[2023-10-10 08:28] LABS: HEMATOCRIT 24.4 % (39.0-48.0); MEAN CELL VOLUME 96.4 fL (80.0-100.00); MEAN CORPUSCULAR HGB CONC 33.5 g/dl (32.0-36.0); PLATELET COUNT 195 K/uL (150-450); RED BLOOD COUNT 2.53 M/uL (4.00-6.00); RED CELL DISTRIBUTION WIDTH 17.4 % (11.5-14.5)
[2023-10-10 08:29] LABS: HEMOGLOBIN 8.2 g/dL (13-16.00); MEAN CORPUSCULAR HEMOGLOBIN 32.4 pg (27.00-32.0)
[2023-10-10 08:47] LABS: CREATININE SERUM 0.49 mg/dL (0.70-1.30); GFR 165.04; POTASSIUM 3.21 mEq/L (3.5-5.1)
[2023-10-10] MEDS ORDERED: PAMIDRONATE DISODIUM IV ONE ×2 (10:45→12:30)
[2023-10-11 06:55] LABS: ALBUMIN 2.1 gm/dL (3.4-5.0); BILIRUBIN TOTAL 0.58 mg/dL (0.3-1.2); CREATININE SERUM 0.54 mg/dL (0.70-1.30); GFR 147.53; GLOBULINA 4.6 G/DL (2.4-3.5); POTASSIUM 3.54 mEq/L (3.5-5.1); TOTAL PROTEIN 6.7 gm/dL (6.4-8.2)
[2023-10-11 07:51] LABS: CALCIUM 13.2 mg/dL (8.5-10.1)
[2023-10-12 06:19] LABS: HEMATOCRIT 25.1 % (39.0-48.0); MEAN CELL VOLUME 96.2 fL (80.0-100.00); PLATELET COUNT 189 K/uL (150-450); RED BLOOD COUNT 2.61 M/uL (4.00-6.00); RED CELL DISTRIBUTION WIDTH 17.3 % (11.5-14.5)
[2023-10-12 06:30] LABS: ALBUMIN 2.2 gm/dL (3.4-5.0); BILIRUBIN TOTAL 0.46 mg/dL (0.3-1.2); CALCIUM 12.4 mg/dL (8.5-10.1); CREATININE SERUM 0.77 mg/dL (0.70-1.30); GFR 97.96; GLOBULINA 4.5 G/DL (2.4-3.5); TOTAL PROTEIN 6.7 gm/dL (6.4-8.2)
[2023-10-12 06:31] LABS: HEMOGLOBIN 8.5 g/dL (13-16.00); MEAN CORPUSCULAR HEMOGLOBIN 32.5 pg (27.00-32.0)
[2023-10-12 06:44] LABS: POTASSIUM 2.87 mEq/L (3.5-5.1)
[2023-10-12] MEDS ORDERED: MAGNESIUM SULFATE IN WATER 2 GM/50 ML PIGGYBAG IV NR (08:00)
[2023-10-12] MEDS ORDERED: POTASSIUM CHLORIDE IN WATER 40 MEQ/100 ML PIGGYBAG IV SCH (09:00)
[2023-10-13 09:50] LABS: CALCIUM 10.8 mg/dL (8.5-10.1); CREATININE SERUM 0.54 mg/dL (0.70-1.30); GFR 147.53
[2023-10-13 10:55] LABS: POTASSIUM 2.86 mEq/L (3.5-5.1)
[2023-10-13] MEDS ORDERED: GABAPENTIN 100 MG CAPSULE PO SCH (13:00)
[2023-10-13] MEDS ORDERED: POTASSIUM CHLORIDE 10 MEQ CAPSULE PO SCH (14:00)
[2023-10-15 12:30] LABS: HEMATOCRIT 24.4 % (39.0-48.0); MEAN CELL VOLUME 94.9 fL (80.0-100.00); MEAN CORPUSCULAR HEMOGLOBIN 31.1 pg (27.00-32.0); MEAN CORPUSCULAR HGB CONC 32.7 g/dl (32.0-36.0); PLATELET COUNT 157 K/uL (150-450); RED BLOOD COUNT 2.57 M/uL (4.00-6.00); RED CELL DISTRIBUTION WIDTH 17.5 % (11.5-14.5)
[2023-10-15 12:56] LABS: BILIRUBIN TOTAL 0.56 mg/dL (0.3-1.2); CALCIUM 9.8 mg/dL (8.5-10.1); CREATININE SERUM 0.98 mg/dL (0.70-1.30); GFR 74.16; GLOBULINA 4.2 G/DL (2.4-3.5); POTASSIUM 3.46 mEq/L (3.5-5.1); TOTAL PROTEIN 6.2 gm/dL (6.4-8.2)
[2023-10-16 16:21] LABS: HEMATOCRIT 24.9 % (39.0-48.0); MEAN CELL VOLUME 95.2 fL (80.0-100.00); MEAN CORPUSCULAR HEMOGLOBIN 32.1 pg (27.00-32.0); MEAN CORPUSCULAR HGB CONC 33.7 g/dl (32.0-36.0); PLATELET COUNT 142 K/uL (150-450); RED BLOOD COUNT 2.61 M/uL (4.00-6.00); RED CELL DISTRIBUTION WIDTH 17.5 % (11.5-14.5)
[2023-10-16 16:26] LABS: HEMOGLOBIN 8.4 g/dL (13-16.00)
[2023-10-16] MEDS ORDERED: MEROPENEM 500 MG/VIAL VIAL IV SCH (18:00)
[2023-10-17 08:11] LABS: HEMATOCRIT 24.6 % (39.0-48.0); MEAN CELL VOLUME 92.3 fL (80.0-100.00); RED BLOOD COUNT 2.67 M/uL (4.00-6.00); RED CELL DISTRIBUTION WIDTH 17.3 % (11.5-14.5)
[2023-10-17 08:12] LABS: HEMOGLOBIN 8.4 g/dL (13-16.00); MEAN CORPUSCULAR HEMOGLOBIN 31.4 pg (27.00-32.0); PLATELET COUNT 117 K/uL (150-450)
[2023-10-17 21:08] LABS: CALCIUM 9.2 mg/dL (8.5-10.1); CREATININE SERUM 0.7 mg/dL (0.70-1.30); GFR 109.35; POTASSIUM 3.13 mEq/L (3.5-5.1)
[2023-10-18 12:36] LABS: HEMATOCRIT 29.4 % (39.0-48.0); HEMOGLOBIN 9.9 g/dL (13-16.00); MEAN CELL VOLUME 89.6 fL (80.0-100.00); MEAN CORPUSCULAR HEMOGLOBIN 30.2 pg (27.00-32.0); MEAN CORPUSCULAR HGB CONC 33.7 g/dl (32.0-36.0); RED BLOOD COUNT 3.28 M/uL (4.00-6.00); RED CELL DISTRIBUTION WIDTH 18.3 % (11.5-14.5)
[2023-10-18 13:07] LABS: PLATELET COUNT 124 K/uL (150-450)
[2023-10-18] MEDS ORDERED: POTASSIUM CHLORIDE IN WATER 40 MEQ/100 ML PIGGYBAG IV SCH (18:00)
[2023-10-19 06:58] LABS: CALCIUM 8.6 mg/dL (8.5-10.1); CREATININE SERUM 0.47 mg/dL (0.70-1.30); GFR 173.17
[2023-10-19 07:49] LABS: POTASSIUM 2.96 mEq/L (3.5-5.1)
[2023-10-19] MEDS ORDERED: POTASSIUM CHLORIDE 10 MEQ CAPSULE PO STA (08:07)
[2023-10-19] MEDS ORDERED: POTASSIUM CHLORIDE IN WATER 40 MEQ/100 ML PIGGYBAG IV SCH (09:00)
[2023-10-20] MEDS ORDERED: ACETAMINOPHEN 500 MG GEL..CAP PO PRN (01:45)
[2023-10-20 09:36] LABS: CALCIUM 8.6 mg/dL (8.5-10.1); CREATININE SERUM 0.57 mg/dL (0.70-1.30); GFR 138.61; POTASSIUM 3.9 mEq/L (3.5-5.1)
[2023-10-23 09:16] LABS: HEMATOCRIT 28.5 % (39.0-48.0); HEMOGLOBIN 9.7 g/dL (13-16.00); MEAN CELL VOLUME 91.3 fL (80.0-100.00); MEAN CORPUSCULAR HGB CONC 33.9 g/dl (32.0-36.0); RED BLOOD COUNT 3.12 M/uL (4.00-6.00); RED CELL DISTRIBUTION WIDTH 18.3 % (11.5-14.5)
[2023-10-23 09:17] LABS: PLATELET COUNT 107 K/uL (150-450)
[2023-10-24] MEDS ORDERED: MEROPENEM 500 MG/VIAL VIAL IV SCH (18:00)
== END 2023-10-25 22:15 | disposition home or self-care (01) | DRG 871 ==
LOC: ER 08:37 → SEC-K 13:04 → MEDJ 13:04
PROVIDERS: General Practice; Internal Medicine; Student in an Organized Health Care Education/Training Program; ADMIT Internal Medicine; ATTEND Internal Medicine
PROC: BW28ZZZ Computerized Tomography (CT Scan) of Head (ICD-10-PCS; principal; 2023-09-19)
PROC: BW21YZZ Computerized Tomography (CT Scan) of Abdomen and Pelvis using Other Contrast (ICD-10-PCS; 2023-09-21)
PROC: BW28ZZZ Computerized Tomography (CT Scan) of Head (ICD-10-PCS; 2023-09-25)
PROC: BW21YZZ Computerized Tomography (CT Scan) of Abdomen and Pelvis using Other Contrast (ICD-10-PCS; 2023-10-02)
PROC: 0W9J3ZZ Drainage of Pelvic Cavity, Percutaneous Approach (ICD-10-PCS; 2023-10-04)
PROC: 30233N1 Transfusion of Nonautologous Red Blood Cells into Peripheral Vein, Percutaneous Approach (ICD-10-PCS; 2023-10-16)
DX: A41.9 Sepsis, unspecified organism (principal); J18.9 Pneumonia, unspecified organism; N39.0 Urinary tract infection, site not specified; L02.215 Cutaneous abscess of perineum; C48.2 Malignant neoplasm of peritoneum, unspecified; C21.2 Malignant neoplasm of cloacogenic zone; L98.498 Non-pressure chronic ulcer of skin of other sites with other specified severity; B96.20 Unspecified Escherichia coli [E. coli] as the cause of diseases classified elsewhere; B96.4 Proteus (mirabilis) (morganii) as the cause of diseases classified elsewhere; B96.5 Pseudomonas (aeruginosa) (mallei) (pseudomallei) as the cause of diseases classified elsewhere; K60.3 Anal fistula; C61 Malignant neoplasm of prostate; Z93.3 Colostomy status; I95.89 Other hypotension